=== PATIENT | female | born 1985 | race Caucasian/White ===

== ENCOUNTER 2016-10-19 18:24 | Emergency (ER) | payer MEDICAID, OTHER ==
[2016-10-19 18:30] VITALS: BP 136/91
[2016-10-19] MEDS ORDERED: NORMAL SALINE 1000 ML 1,000 ML IV ONE (18:31)
--- NOTE | 2016-10-19 18:35 | ER Document Report ---
ED Medical Screen (RME) - General Chief Complaint: Nausea/Vomiting Stated Complaint: COUGH,VOMITING Mode of Arrival: Wheelchair Information source: Patient Notes: Patient presents to the emergency department with 4 days of vomiting. Unable to hold fluids down. Patient has a history of hyperthyroidism who has not been able to take her medications for the past couple days due to the vomiting. Reports fever and frequent cough. Denies diarrhea. Patient is pale heart rate in the 160s. took motrin a few hours ago. I have greeted and performed a rapid initial assessment of this patient. A comprehensive ED assessment and evaluation of the patient, analysis of test results and completion of the medical decision making process will be conducted by additional ED providers. Physical Exam - Vital signs Vitals: Temp Pulse Resp BP Pulse Ox 98.8 F 158 H 20 136/91 H 97 10/19/16 18:28 10/19/16 18:28 10/19/16 18:28 10/19/16 18:28 10/19/16 18:28 Course - Vital Signs Vital signs: Temp Pulse Resp BP Pulse Ox 98.8 F 158 H 20 136/91 H 97 10/19/16 18:28 10/19/16 18:28 10/19/16 18:28 10/19/16 18:28 10/19/16 18:28
[2016-10-19] MEDS ORDERED: BENZONATATE 100 MG CAPSULE PO ONE (19:00)
--- NOTE | 2016-10-19 19:05 | ER Document Report ---
ED General - General Chief Complaint: Nausea/Vomiting Stated Complaint: COUGH,VOMITING Time seen by provider: 19:02 Mode of Arrival: Wheelchair TRAVEL OUTSIDE OF THE [place] IN LAST 30 DAYS: No - HPI Patient complains to provider of: cough, nausea, vomiting, fever Onset: Other - 3-4 days Onset/Duration: Gradual Quality of pain: Achy Severity: Moderate Pain Level: 2 Associated symptoms: Body/muscle aches, Nonproductive cough, Nausea, Vomiting, Sinus pain/drainage Exacerbated by: Denies Relieved by: Denies Similar symptoms previously: No Recently seen / treated by doctor: No Notes: Patient is a 31-year-old female with a history of hyperthyroidism who presents to the emergency room complaining of nonproductive cough that sometimes leads to post tussive emesis, with nausea and vomiting, fever of 102, symptoms of been going on for the past 3-4 days, she reports that she has been unable to take her medications which include PTU and metoprolol because of illness, she does not currently have a primary care provider and will run out of these medications within the next few days as well, patient also is a smoker Past Medical History - General Information source: Patient - Social History Smoking Status: Current Every Day Smoker Family History: Reviewed & Not Pertinent Patient has suicidal ideation: No Patient has homicidal ideation: No Renal/ Medical History: Denies: Hx Peritoneal Dialysis Review of Systems - Review of Systems Constitutional: Fever EENT: See HPI Cardiovascular: Heart racing Respiratory: See HPI Gastrointestinal: See HPI Genitourinary: No symptoms reported Female Genitourinary: No symptoms reported Musculoskeletal: No symptoms reported Skin: No symptoms reported Hematologic/Lymphatic: No symptoms reported Neurological/Psychological: No symptoms reported -: Yes All other systems reviewed and negative Physical Exam - Vital signs Vitals: Temp Pulse Resp BP Pulse Ox 98.8 F 158 H 20 136/91 H 97 10/19/16 18:28 10/19/16 18:28 10/19/16 18:28 10/19/16 18:28 10/19/16 18:28 Interpretation: Tachycardic - General General appearance: Alert In distress: Mild - HEENT Head: Normocephalic, Atraumatic Eyes: Normal Conjunctiva: Normal Extraocular movements intact: Yes Eyelashes: Normal Pupils: PERRL Neck: Thyromegally - Respiratory Respiratory status: No respiratory distress Chest status: Nontender Breath sounds: Normal, Nonproductive cough Chest palpation: Normal - Cardiovascular Rhythm: Regular Heart sounds: Normal auscultation Murmur: No - Abdominal Inspection: Normal Distension: No distension Bowel sounds: Normal Tenderness: Nontender Organomegaly: No organomegaly - Back Back: Normal, Nontender - Extremities General upper extremity: Normal inspection, Nontender, Normal color, Normal ROM , Normal temperature General lower extremity: Normal inspection, Nontender, Normal color, Normal ROM , Normal temperature, Normal weight bearing. No: Carlotta's sign - Neurological Neuro grossly intact: Yes Cognition: Normal Orientation: AAOx4 Faina Coma Scale Eye Opening: Spontaneous [place] Coma Scale Verbal: Oriented Faina Coma Scale Motor: Obeys Commands Faina Coma Scale Total: 15 Speech: Normal Motor strength normal: LUE, RUE, LLE, RLE Sensory: Normal - Psychological Associated symptoms: Normal affect, Normal mood - Skin Skin Temperature: Warm Skin Moisture: Dry Skin Color: Normal Course - Re-evaluation Re-evalutation: 10/19/16 20:58 A call was placed to [facility], spoke with Avis who was given patient information, requested callback from endocrinology 10/19/16 21:20 Patient was discussed with Dr. Koch, lab coordinator [facility], patient's presentation, vital signs and labs were discussed, she is concerned that patient is in thyroid storm, recommends hydrocortisone 100 mg IV as well as PTU 100 mg twice a day administered to patients, she agrees that patient needs to be hospitalized and transferred, therefore transfer center will discuss patient with the internal medicine physician to get acceptance, and patient will likely be transferred as an ED to ED transfer 10/19/16 22:28 Patient stating that she no longer wants to be admitted or transferred to a tertiary care hospital, I had a lengthy discussion with both patient and at bedside who was quite agitated and adamant that patient was not going to be staying in the hospital or being transferred, I once again reiterated with patient and that she is in critical condition and her thyroid levels are extremely high and that she could from this, patient stated she understood this and was willing to take the risk, although I think it 's a poor decision on patient's part she does not lack the capacity to make such a decision and therefore was permitted to sign out AGAINST MEDICAL ADVICE, patient was advised that she can return to the hospital at any point in time to receive care, and she was strongly advised to follow-up with a primary care provider and an lab coordinator as soon as possible, she was provided with prescriptions for her PTU and metoprolol - Vital Signs Vital signs: Temp Pulse Resp BP Pulse Ox 98.8 F 158 H 20 136/91 H 96 10/19/16 18:28 10/19/16 18:28 10/19/16 18:28 10/19/16 18:28 10/19/16 19:08 - Laboratory Result Diagrams: 10/19/16 18:55 10/19/16 18:55 Laboratory results interpreted by me: 10/19/16 10/19/16 10/19/16 18:55 18:55 18:55 RBC 5.72 H MCV 76 L MCH 25.3 L RDW 14.6 H Seg Neutrophils % 38.5 L Lymphocytes % 48.8 H Creatinine 0.34 L Glucose 124 H Lactic Acid AST 82 H ALT 67 H Alkaline Phosphatase 221 H TSH < 0.02 L Free T4 > 6.99 H Free T3 pg/mL > 22.80 H 10/19/16 18:55 RBC MCV MCH RDW Seg Neutrophils % Lymphocytes % Creatinine Glucose Lactic Acid 3.7 H AST ALT Alkaline Phosphatase TSH Free T4 Free T3 pg/mL - Diagnostic Test Radiology reviewed: Image reviewed, Reports reviewed - EKG Interpretation by [place] EKG shows normal: Sinus rhythm Rate: Tachycardia Critical Care Note - Critical Care Note Total time excluding time spent on procedures (mins): 120 Comments: Patient extremely tachycardic upon arrival, symptoms and lab values consistent with thyroid storm, time was spent caring for patient, discussing patient's condition with family, arranging for care with specialist at outside facility and transfer to outside facility Discharge - Discharge Clinical Impression: Thyrotoxicosis Qualifiers: Thyrotoxicosis type: unspecified thyrotoxicosis type Thyrotoxic crisis or storm presence: with thyrotoxic crisis or storm Qualified Code(s): E05.91 - Thyrotoxicosis, unspecified with thyrotoxic crisis or storm Condition: Serious Disposition: AGAINST MEDICAL ADVICE Instructions: Hyperthyroidism ([facility]) Additional Instructions: Please follow-up with your primary care provider and an lab coordinator within the next 1-2 days. Please return to the nearest emergency room immediately if you decide that you would like to be treated once again. Prescriptions: Metoprolol Succinate 50 mg PO DAILY #30 tab.er.24h Propylthiouracil 75 mg PO TID #150 tablet
[2016-10-19] MEDS ORDERED: METOPROLOL TARTRATE 50 MG TABLET PO ONE (19:06)
[2016-10-19] MEDS ORDERED: PROPYLTHIOURACIL 50 MG TABLET PO ONE ×2 (19:06→21:17)
[2016-10-19] MEDS ORDERED: ONDANSETRON HCL INJ/PF 4 MG/2 ML SDV IV ONE (19:07)
[2016-10-19 19:15] LABS: ABSOLUTE EOSINOPHILS # (AUTO) 0.1 10^3/uL (0.0-0.6); ABSOLUTE LYMPHOCYTES (AUTO) 3.4 10^3/uL (0.5-4.7); ABSOLUTE MONOCYTES (AUTO) 0.8 10^3/uL (0.1-1.4); ABSOLUTE NEUT (AUTO) 2.7 10^3/uL (1.7-8.2); BASOPHILS % (AUTO) 0.3 % (0-2); HEMATOCRIT 43.4 % (36.0-47.0); HEMOGLOBIN 14.5 g/dL (12.0-15.5); HGB HCT DIFFERENCE 0.1; LYMPHOCYTES % (AUTO) 48.8 % (13-45); MEAN CORPUSCULAR HEMOGLOBIN 25.3 pg (27.0-33.4); MEAN CORPUSCULAR HGB CONC 33.4 g/dL (32.0-36.0); MEAN CORPUSCULAR VOLUME 76 fl (80-97); MONOCYTES % (AUTO) 11.4 % (3-13); RED BLOOD COUNT 5.72 10^6/uL (3.72-5.28); RED CELL DISTRIBUTION WIDTH 14.6 % (11.5-14.0); SEGMENTED NEUTROPHILS % (AUTO) 38.5 % (42-78)
[2016-10-19 19:40] LABS: ALANINE AMINOTRANSFERASE 67 U/L (9-52); ALBUMIN 4.2 g/dL (3.5-5.0); ALKALINE PHOSPHATASE 221 U/L (38-126); ANION GAP 19 (5-19); ASPARTATE AMINO TRANSFERASE 82 U/L (14-36); BILIRUBIN,DIRECT 0.3 mg/dL (0.0-0.4); BILIRUBIN,TOTAL 0.6 mg/dL (0.2-1.3); BLOOD UREA NITROGEN 18 mg/dL (7-20); CALCIUM 9.6 mg/dL (8.4-10.2); CARBON DIOXIDE 24 mmol/L (22-30); CHLORIDE 98 mmol/L (98-107); CREATININE RESULT 0.34 mg/dL (0.52-1.25); GLUCOSE 124 mg/dL (75-110); POTASSIUM 3.8 mmol/L (3.6-5.0); SODIUM 141.1 mmol/L (137-145)
[2016-10-19 20:41] LABS: FREE T3 > 22.80 pg/mL (2.77-5.27); THYROID STIMULATING HORMONE < 0.02 uIU/mL (0.47-4.68)
[2016-10-19] MEDS ORDERED: HYDROCORTISONE SOD SUCCINATE INJ/PF 100 MG/2 ML SDV IV ONE (21:14)
--- NOTE | 2016-10-20 00:16 | EKG REPORT ---
SEVERITY:- OTHERWISE NORMAL ECG - SINUS TACHYCARDIA : Confirmed by: Chrissy Win 20-Oct-2016 00:15:45
== END 2016-10-19 22:48 | disposition left against medical advice (07) ==
LOC: ER 18:24
DX: E05.91 Thyrotoxicosis, unspecified with thyrotoxic crisis or storm (principal); R00.0 Tachycardia, unspecified; R11.2 Nausea with vomiting, unspecified; R05 Cough; R50.9 Fever, unspecified; M79.1 Myalgia; F17.200 Nicotine dependence, unspecified, uncomplicated
CPT/HCPCS: 93005; 99285; 96374; 96375; 36415; 87040; 84439; 84443; 84703; 85025; 80053; 84481; 83605; 87804; 71010; 93010; J1720; J3490; J2405; J7030